=== PATIENT | female | born 1960 | race Caucasian/White ===

== ENCOUNTER → 2016-11-19 | Outpatient (CLI) | payer BC | LOC: LAB 07:57 | PROVIDERS: ATTEND Student in an Organized Health Care Education/Training Program | DX: R53.82 Chronic fatigue, unspecified (principal); E03.9 Hypothyroidism, unspecified; R76.8 Other specified abnormal immunological findings in serum | CPT/HCPCS: 36415; 82024; 82533; 84443; 86038; 86376 ==

== ENCOUNTER → 2016-12-10 | Outpatient (CLI) | payer BC ==
--- NOTE | 2016-12-10 16:02 | EKG ---
[address] [address] Measurements Intervals Stout Rate: 82 P: 63 UT: 157 QRS: -21 QRSD: 97 T: 29 QT: 359 QTc: 397 Interpretive Statements SINUS RHYTHM BORDERLINE LEFT AXIS DEVIATION MODERATE VOLTAGE CRITERIA FOR LVH, Compared to ECG 10/22/2016 16:24:25 No significant change Electronically Signed On 12-11-16 14:05:50 MST by Krish Washington [id number]
== END ==
LOC: EKG 15:52
PROVIDERS: ATTEND Specialist
DX: R00.2 Palpitations (principal); I10 Essential (primary) hypertension; I47.1 Supraventricular tachycardia
CPT/HCPCS: 93005; 93010

== ENCOUNTER → 2017-03-25 | Outpatient (CLI) | payer BC ==
[2017-03-25 15:31] LABS: BASOPHILS # (AUTO) 0.04 10*3/UL; BASOPHILS % (AUTO) 0.4 % (0-1); EOSINOPHILS # (AUTO) 0.25 10*3/UL; EOSINOPHILS % (AUTO) 2.3 % (0-8); HEMATOCRIT 47.8 % (37.0-47.0); HEMOGLOBIN 15.8 g/dL (12.0-16.0); LYMPHOCYTES # (AUTO) 3.19 10*3/uL; MEAN CORPUSCULAR HEMOGLOBIN 29.7 PG (27-31); MEAN CORPUSCULAR HGB CONC 33.1 g/dL (33-37); MEAN CORPUSCULAR VOLUME 89.8 FL (81-99); MEAN PLATELET VOLUME 10.3 FL (7.4-12.2); MONOCYTES # (AUTO) 1.02 10*3/UL (0.3-0.8); MONOCYTES % (AUTO) 9.5 % (5-15); NEUTROPHILS # (AUTO) 6.09 10*3/UL; NEUTROPHILS % (AUTO) 56.9 % (50-80); RED BLOOD COUNT 5.32 10^6/uL (4.20-5.40)
[2017-03-25 17:02] LABS: PLATELET MORPHOLOGY COMMENT NORMAL MORPHOLOGY (NORM); RBC MORPHOLOGY COMMENT NORMAL MORPHOLOGY (NORM); WBC MORPHOLOGY COMMENT NORMAL MORPHOLOGY (NORM)
== END ==
LOC: MOB LAB 14:36
PROVIDERS: ATTEND Specialist
DX: R42 Dizziness and giddiness (principal); R53.83 Other fatigue; R51 Headache
CPT/HCPCS: 36415; 85025

== ENCOUNTER → 2017-03-27 | Outpatient (CLI) | payer BC ==
[2017-03-27 07:07] LABS: BILIRUBIN,URINE NEGATIVE (NEG); COLOR,URINE YELLOW; GLUCOSE, URINE (UA) NEGATIVE (NEG); NITRATE,URINE NEGATIVE (NEG); OCCULT BLOOD,URINE NEGATIVE (NEG); PROTEIN,URINE NEGATIVE (NEG); UROBILINOGEN,URINE 0.2 mg/dL (0.2)
[2017-03-27 07:24] LABS: CLARITY,URINE CLEAR (CLEAR)
[2017-03-27 07:26] LABS: RBC,URINE RARE /hpf; SQUAMOUS EPITHELIAL CELL,UR MODERATE; URINE SAMPLE TYPE CLEAN CATCH URINE; WBC,URINE RARE
[2017-03-27 07:53] LABS: BLOOD UREA NITROGEN 14 mg/dL (7-22); CALCIUM 9.7 mg/dL (8.7-10.7); EST GLOMERULAR FILTRATION > 60 (>60 ml/min/1.73m(2)); SERUM ALBUMIN 4.2 g/dL (3.5-4.8)
[2017-03-27 07:54] LABS: HEMOGLOBIN A1C 5.97 % (4.2-6.0)
--- NOTE | 2017-03-27 11:58 | DI ---
CT HEAD W/O CONTRAST,03/27/2017 10:17 AM: Clinical History: Chronic headache Previous Exam: None at this facility. Findings: Multiple helically acquired CT images are obtained through the brain without contrast, and demonstrat e normal, symmetric ventricles and other CSF containing spaces. There is no mass, hemorrhage or midli ne shift. The surrounding soft tissue and osseous structures are unremarkable. Impression: Normal CT head.
== END ==
LOC: LAB 06:29
PROVIDERS: ATTEND Specialist
DX: E11.9 Type 2 diabetes mellitus without complications (principal); I10 Essential (primary) hypertension; E03.9 Hypothyroidism, unspecified; E78.00 Pure hypercholesterolemia, unspecified; R42 Dizziness and giddiness; R53.83 Other fatigue; R51 Headache
CPT/HCPCS: 36415; 70450; 80053; 81001; 83036; 84443

== ENCOUNTER 2017-04-28 07:29 | Day surgery (SDC) | payer BC ==
[~2017-04-28 07:29] MED LIST: LIDOCAINE W/ SODIUM BICARB 0.5 ML SYR ONE; Lactated Ringers 1,000 ML PRIMARY IV ONE
[2017-04-28] MEDS ORDERED: LIDOCAINE 2% VISCOUS(20 MG/1 ML) - 15 ML UD CUP PO ONE (07:46)
--- NOTE | 2017-04-28 08:24 | GEN.OPNOTE ---
EGD Operative Note Surgery Date: 04/28/17 Preoperative Diagnosis: Gastric esophageal reflux disease Postoperative Diagnosis: Gastroesophageal reflux disease. Bile and stomach Procedure: Esophagogastroduodenoscopy with biopsies Surgeon: Shakeel Lowery MD Anesthesia Provider: Juana Tracy CRNA Anesthesia Type: MAC Indications: Patient is having persisting epigastric abdominal pain nausea Findings: Esophagus: Squamous video EGD scope inserted in posterior pharynx. Guided into the esophagus under direct visualization. Esophagus appeared to be normal no inflammation seen. Random biopsies taken rule out eosinophilic esophagitis. GE Junction : GE junction 40 cm from incisors Fundus : Scope retroflexed on itself revealing the fundus. She did have some what appeared be inflammatory polyps in the fundus. Polyp was removed with cold biopsy forceps. There is adequate hemostasis Body : The body of the stomach is within normal limits. Except for some inflammatory polyps biopsies were taken. There was a fair amount of bile within the body of the stomach Prepyloric : Prepyloric areas within normal limits biopsies taken for CLOtest and for pathology Small Intestine : Patient did have some bile within the duodenum Appeared be quite significant. Random biopsies taken A lubricated flexible upper endoscope was inserted and passed through the esophagus and stomach into the duodenum. Pathology: Biopsies of the duodenum, prepyloric area, body of the stomach, fundus of the stomach, and esophagus Additional Details: We'll await the results of the biopsies. The patient may have bile reflux
[2017-04-28 08:32] VITALS: RESP 16
[2017-04-28] MEDS ORDERED: Lactated Ringers 1,000 ML PRIMARY IV ONE (08:34)
[2017-04-28] MEDS ORDERED: Sucralfate Tab 1 GM TAB PO ONE ×2 (09:02→09:39)
[2017-04-28 09:30] VITALS: TEMP 98.5
== END 2017-04-28 09:05 | disposition home or self-care (01) ==
LOC: SDSC 07:29
PROVIDERS: ATTEND Surgery
DX: K21.9 Gastro-esophageal reflux disease without esophagitis (principal)
CPT/HCPCS: 43239; 87339; J2704; J7120